=== PATIENT | female | born 1970 | race Caucasian/White ===

== ENCOUNTER → 2020-11-06 | Outpatient (CLI) | payer MEDICAID ==
[~2020-11-06] MED LIST: DIVA500T17 PO; DIVA500T4 PO; DULO60CA7 PO; ENOX40SY4 SQ; FERR325T18 PO; MULT-658 PO; POTA10TA11 PO; VALP250S PO; VEDO300V INJ; WARF1TAB74 PO; WARF5TAB2 PO
== END | disposition home or self-care (01) ==
LOC: STAR 15:09
PROVIDERS: ATTEND Surgery
DX: Z20.822 Contact with and (suspected) exposure to COVID-19 (principal)
CPT/HCPCS: U0005; U0003

== ENCOUNTER 2020-11-12 11:21 | Day surgery (SDC) | payer MEDICARE, MEDICAID ==
[~2020-11-12] VITALS: Ht 154.9 cm; Wt 83.5 kg
[2020-11-12 11:44] VITALS: BP 139/78
[2020-11-12] MEDS ORDERED: LACTATED RINGERS 1,000 ML IV SCH (12:00)
[2020-11-12] MEDS ORDERED: CHLORHEXIDINE 15 ML UDC PO ONE (12:00)
[2020-11-12] MEDS ORDERED: PROPOFOL 10 MG/ML, 20ML ONE (12:59)
== END 2020-11-12 14:15 | disposition home or self-care (01) ==
LOC: OUT 11:21
PROVIDERS: ATTEND Surgery
DX: K62.5 Hemorrhage of anus and rectum (principal); K51.80 Other ulcerative colitis without complications; F41.9 Anxiety disorder, unspecified; F17.210 Nicotine dependence, cigarettes, uncomplicated; E66.01 Morbid (severe) obesity due to excess calories; Z88.1 Allergy status to other antibiotic agents; Z88.0 Allergy status to penicillin; Z88.8 Allergy status to other drugs, medicaments and biological substances; Z68.34 Body mass index [BMI] 34.0-34.9, adult; Z98.890 Other specified postprocedural states; Z79.899 Other long term (current) drug therapy; Z93.2 Ileostomy status
CPT/HCPCS: 45331; 88305; J2704; J7120